=== PATIENT | female | born 1955 | race Caucasian/White ===

== ENCOUNTER → 2020-12-01 | Outpatient (CLI) | payer OTHER ==
[2020-12-02 08:13] LABS: COMPLEMENT C3, SERUM 177 mg/dL (82-167); COMPLEMENT C4, SERUM 38 mg/dL (12-38); RHEUMATOID ARTHRITIS FACTOR <10.0 IU/mL (0.0-13.9)
[2020-12-02 15:14] LABS: ALDOLASE 4.7 U/L (3.3-10.3)
== END ==
LOC: LAB 13:35
PROVIDERS: Internal Medicine
DX: M25.50 Pain in unspecified joint (principal); R76.8 Other specified abnormal immunological findings in serum; D89.89 Other specified disorders involving the immune mechanism, not elsewhere classified; M79.7 Fibromyalgia
CPT/HCPCS: 36415; 82085; 82550; 82728; 83520; 85652; 86140; 86160; 86162; 86200; 86431